=== PATIENT | male | born 1970 | race Caucasian/White ===

== ENCOUNTER 2019-05-05 10:59 | Emergency (ER) | payer OTHER ==
[2019-05-05 12:00] VITALS: O2SAT 94
--- NOTE | 2019-05-05 13:15 | RAD ---
EXAM DESCRIPTION: Shoulder,Left 2 or More Views CLINICAL HISTORY: L SHOULDER PAIN FROM LIFTING A BUCKET AT WORK. COMPARISON: None. IMPRESSION: 2 views of the left shoulder show no acute fracture, focal bone destruction, or joint dislocation. Irregularity of the inferior acromion process and greater tuberosity of the left humeral head suggests moderate osteoarthritic changes and could result in impingement symptoms. The left acromial clavicular joint is otherwise unremarkable. Electronically signed by: Conrado Stacy MD 05/05/2019 1:13 PM [facility]
--- NOTE | 2019-05-05 13:41 | ED.PDOC ---
History of Present Illness - General Chief Complaint: Upper Extremity Injury Stated Complaint: left shoulder pain Time Seen by Provider: 05/05/19 12:16 Source: patient Exam Limitations: no limitations - History of Present Illness Initial Comments: AT WORK YESTERDAY, THE PT WAS LIFTING A 5 LB BUCKET HE USUALLY DOES PART OF HIS JOB. HE WAS TRANSFERRING IT INTO A PICKUP TRUCK, HE FELT A SUDDEN PAIN IN LEFT SHOULDER. PAIN PERSISTS TODAY. [employer]. Occurred: yesterday Pain - Upper Extremity: severe: Shoulder, left - PAIN WITH USAGE; NO PAIN AT REST. Improving Factors: rest Worsening Factors: movement Allergies/Adverse Reactions: Allergies Sulfamethoxazole w/Trimethoprim [From Bactrim] Allergy (Verified 05/05/19 12:00) Home Medications: Ambulatory Orders Anastrozole [Arimidex] 1 mg PO WKLY 05/05/19 Exenatide [Bydureon Bcise] 2 mg SC WKLY 05/05/19 Review of Systems - Review of Systems Constitutional: States: no symptoms reported EENTM: States: no symptoms reported Respiratory: States: no symptoms reported Cardiology: States: no symptoms reported Gastrointestinal/Abdominal: States: no symptoms reported Genitourinary: States: no symptoms reported Musculoskeletal: States: see HPI, muscle pain. Denies: back pain, neck pain Skin: Denies: lesions, rash Neurological: Denies: numbness, paresthesia Endocrine: States: no symptoms reported Hematologic/Lymphatic: States: no symptoms reported All other Systems: Reviewed and Negative Past Medical History (General) - Patient Medical History Hx Stroke: No Hx Congestive Heart Failure: No Hx Hypertension: Yes Hx Diabetes: Yes - Vaccination History Hx Influenza Vaccination: Yes Hx Pneumococcal Vaccination: No - Social History Hx Tobacco Use: Yes Family Medical History - Family History Father Family History: Unknown Living Status: Unknown Physical Exam - Physical Exam General Appearance: Alert, Well Developed Eyes, Ears, Nose, Throat Exam: PERRL/EOMI, normal ENT inspection Neck: full range of motion, normal inspection Back Exam: normal inspection, no CVA tenderness, no vertebral tenderness Shoulder Exam: limited ROM - R SHOULDER NL. L SHOULDER: PAIN WITH ACTIVE ANTEROFLEXION. NO PAIN WITH PASSIVE ANTEROFLEXION. PAIN WITH LATERAL ROTATION OF SHOULDER. , pain, soft tissue tenderness - LEFT LATERAL DELTOID MUSCLE TTP. Elbow/Forearm Exam: no evidence of injury, normal ROM Wrist Exam: no evidence of injury, normal ROM Hand Exam: no evidence of injury, normal ROM Neuro/Tendon: normal sensation, normal motor functions, responds to pain Mental Status: alert, oriented x 3 Skin Exam: normal color, warm/dry Progress - Progress Progress: 05/05/19 14:04 X-RAY NEG FOR ACUTE FRX OR SUBLUXATION. POS CHRONIC ARTHRITIC CHANGES, WHICH ARE UNRELATED TO HIS ACUTE MUSCULOSKELETAL STRAIN. LIKELY DELTOID MUSCLE STRAIN BUT COULD INVOLVE ROTATOR CUFF MUSCLES. PT TO SEE WORKERS COMP ORTHO FOR FURTHER EVALUATION AND CARE. Departure - Departure Clinical Impression: Sprain and strain of shoulder and upper arm Left shoulder pain Qualifiers: Chronicity: acute Qualified Code(s): M25.512 - Pain in left shoulder Disposition: Discharge to Home or Self Care Condition: Good Departure Forms: ED Discharge - Pt. Copy, Patient Portal Self Enrollment Instructions: Shoulder Pain (DC) Diet: resume usual diet Referrals: Naomie Tam FNP [Primary Care Provider] - 1-2 Weeks Home Medications: Ambulatory Orders Anastrozole [Arimidex] 1 mg PO WKLY 05/05/19 Exenatide [Bydureon Bcise] 2 mg SC WKLY 05/05/19 Additional Instructions: The x-ray does not show a fracture or dislocation. Please see an orthopedic surgeon for further evaluation. Please contact your employer's human resources department to see who the workers compensation company allows you to see for orthopedics. Please apply ice packs, rest the shoulder, and take ibuprofen as needed for pain.
[2019-05-05 14:18] VITALS: BP 137/93; TEMP 97
== END 2019-05-05 14:14 | disposition home or self-care (01) ==
LOC: ER 10:59
DX: S43.402A Unspecified sprain of left shoulder joint, initial encounter (principal); S46.912A Strain of unspecified muscle, fascia and tendon at shoulder and upper arm level, left arm, initial encounter; I10 Essential (primary) hypertension; E11.9 Type 2 diabetes mellitus without complications; X50.0XXA Overexertion from strenuous movement or load, initial encounter; Y99.0 Civilian activity done for income or pay; Y92.69 Other specified industrial and construction area as the place of occurrence of the external cause; Z87.891 Personal history of nicotine dependence; Z88.5 Allergy status to narcotic agent